=== PATIENT | male | born 1980 | race African-American/Black ===

== ENCOUNTER 2020-06-23 20:43 | Emergency (ER) | payer MEDICAID ==
[~2020-06-23] VITALS: Ht 182.9 cm; Wt 117.9 kg
--- NOTE | 2020-06-23 21:32 | NUR ---
Patient discharged to home in stable condition. Written and verbal after care instructions given. Patient verbalizes understanding of instructions. Stressed follow up or return to ER for worsening s/s. Patient ambulated with stable gait.
[2020-06-23 21:33] VITALS: BP 157/88
== END 2020-06-23 21:33 | disposition home or self-care (01) ==
LOC: ER 20:46
DX: K08.89 Other specified disorders of teeth and supporting structures (principal)
CPT/HCPCS: A4663

== ENCOUNTER 2021-01-17 10:56 | Emergency (ER) | payer MEDICAID ==
[~2021-01-17] VITALS: Ht 182.9 cm; Wt 117.0 kg
[2021-01-17] MEDS ORDERED: HYDROCHLOROTHIAZIDE 25 MG TABLET PO ONE (11:30)
[2021-01-17] MEDS ORDERED: ATENOLOL 50 MG TABLET PO ONE (11:30)
--- NOTE | 2021-01-17 11:30 | NUR ---
at bedside for assessment
[2021-01-17] MEDS ORDERED: ATEN100T PO (11:35)
[2021-01-17] MEDS ORDERED: HYDR25TA4 PO (11:35)
[2021-01-17] MEDS ORDERED: LOVA20TA2 PO (11:35)
[2021-01-17] MEDS ORDERED: IBUP-1957 PO (11:35)
[2021-01-17] MEDS ORDERED: ATENOLOL 50 MG TABLET ONE (11:39)
[2021-01-17] MEDS ORDERED: HYDROCHLOROTHIAZIDE 25 MG TABLET ONE (11:39)
[2021-01-17 11:41] VITALS: BP 162/101
--- NOTE | 2021-01-17 11:41 | NUR ---
Patient discharged to home in stable condition. Took all belongings, no signs of acute distress note. Written and verbal after care instructions given. Patient verbalizes understanding of instructions. Stressed follow up or return to ER for worsening s/s.
== END 2021-01-17 11:42 | disposition home or self-care (01) ==
LOC: ER 10:56
DX: I10 Essential (primary) hypertension (principal); E78.00 Pure hypercholesterolemia, unspecified; Z76.0 Encounter for issue of repeat prescription
CPT/HCPCS: A4663

== ENCOUNTER 2021-02-19 10:51 | Emergency (ER) | payer MEDICAID ==
[~2021-02-19] VITALS: Ht 182.9 cm; Wt 117.0 kg
[~2021-02-19 10:51] MED LIST: ATEN100T PO; HYDR25TA4 PO; IBUP-1957 PO; LOVA20TA2 PO
[2021-02-19] MEDS ORDERED: LOVA20TA2 PO (11:32)
[2021-02-19] MEDS ORDERED: ATEN100T PO (11:32)
[2021-02-19] MEDS ORDERED: HYDR25TA4 PO (11:32)
--- NOTE | 2021-02-19 11:45 | NUR ---
Patient discharged to home in stable condition. Written and verbal after care instructions given. Patient verbalizes understanding of instructions. Stressed follow up or return to ER for worsening s/s.
== END 2021-02-19 11:45 | disposition home or self-care (01) ==
LOC: ER 10:51
DX: I10 Essential (primary) hypertension (principal); E78.5 Hyperlipidemia, unspecified; Z76.0 Encounter for issue of repeat prescription
CPT/HCPCS: A4663

== ENCOUNTER 2021-03-21 09:40 | Emergency (ER) | payer MEDICAID ==
[~2021-03-21] VITALS: Ht 182.9 cm; Wt 117.0 kg
[2021-03-21] MEDS ORDERED: AMOX-430 PO (10:00)
[2021-03-21] MEDS ORDERED: IBUP-1957 PO (10:01)
--- NOTE | 2021-03-21 10:23 | NUR ---
Gave pt RX and d/c instructions, pt verbalized understanding.
== END 2021-03-21 10:10 | disposition home or self-care (01) ==
LOC: ER 09:40
DX: S02.5XXA Fracture of tooth (traumatic), initial encounter for closed fracture (principal); X58.XXXA Exposure to other specified factors, initial encounter; Y92.89 Other specified places as the place of occurrence of the external cause; E78.00 Pure hypercholesterolemia, unspecified; F17.210 Nicotine dependence, cigarettes, uncomplicated; Z79.899 Other long term (current) drug therapy
CPT/HCPCS: A4663

== ENCOUNTER 2021-07-02 12:51 | Emergency (ER) | payer MEDICAID ==
[~2021-07-02] VITALS: Ht 182.9 cm; Wt 116.1 kg
[~2021-07-02 12:51] MED LIST changes: +AMOX-430 PO
[2021-07-02] MEDS ORDERED: PENI500T PO (13:24)
[2021-07-02 13:46] VITALS: BP 149/86
== END 2021-07-02 13:45 | disposition home or self-care (01) ==
LOC: ER 12:53
DX: S02.5XXA Fracture of tooth (traumatic), initial encounter for closed fracture (principal); X58.XXXA Exposure to other specified factors, initial encounter; Y92.89 Other specified places as the place of occurrence of the external cause; E78.00 Pure hypercholesterolemia, unspecified; R03.0 Elevated blood-pressure reading, without diagnosis of hypertension
CPT/HCPCS: A4663

== ENCOUNTER 2021-10-08 11:43 | Emergency (ER) | payer MEDICAID ==
[~2021-10-08] VITALS: Ht 182.9 cm; Wt 116.6 kg
[~2021-10-08 11:43] MED LIST changes: +PENI500T PO
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
--- NOTE | 2021-10-08 12:05 | NUR ---
MD at bedside, medical screening exam in process.
--- NOTE | 2021-10-08 12:24 | NUR ---
No ortho shoe available, Dr Hooks notified.
[2021-10-08] MEDS ORDERED: NEOMY/BACITRA/POLYMYXIN B OINT UD PACKET TP ONE ×2 (12:42→13:00)
[2021-10-08 13:07] VITALS: BP 140/70
[2021-10-09] MEDS ORDERED: CEPH500C2 PO (13:14)
== END 2021-10-08 13:08 | disposition home or self-care (01) ==
LOC: ER 11:44
DX: S91.311D Laceration without foreign body, right foot, subsequent encounter (principal); S32.009D Unspecified fracture of unspecified lumbar vertebra, subsequent encounter for fracture with routine healing; T81.31XA Disruption of external operation (surgical) wound, not elsewhere classified, initial encounter; V69 Occupant of heavy transport vehicle injured in other and unspecified transport accidents; E78.00 Pure hypercholesterolemia, unspecified; Z79.899 Other long term (current) drug therapy
CPT/HCPCS: A4663

== ENCOUNTER 2021-10-09 12:25 | Emergency (ER) | payer MEDICAID ==
[~2021-10-09] VITALS: Ht 182.9 cm; Wt 116.6 kg
[2021-10-09] MEDS ORDERED: CEPH500C2 PO (13:14)
[2021-10-09] MEDS ORDERED: MUPIROCIN 2% OINT 22 GM TUBE TP ONE (13:15)
[2021-10-09] MEDS ORDERED: CEphaleXIN 250 MG CAPSULE PO ONE (13:15)
[2021-10-09] MEDS ORDERED: CEphaleXIN 250 MG CAPSULE ONE ×2 (13:21→13:22)
[2021-10-09] MEDS ORDERED: MUPIROCIN 2% OINT 22 GM TUBE ONE (13:21)
[2021-10-09] MEDS ORDERED: KETOROLAC TROMETHAMINE 30 MG INJ IM ONE (13:45)
[2021-10-09] MEDS ORDERED: KETOROLAC TROMETHAMINE 30 MG INJ ONE (13:56)
[2021-10-09 14:13] VITALS: BP 140/89
== END 2021-10-09 14:15 | disposition home or self-care (01) ==
LOC: ER 12:59
DX: T81.31XD Disruption of external operation (surgical) wound, not elsewhere classified, subsequent encounter (principal); R03.0 Elevated blood-pressure reading, without diagnosis of hypertension; E78.00 Pure hypercholesterolemia, unspecified
CPT/HCPCS: 96372; 99283; J1885; A4663

== ENCOUNTER 2021-10-16 23:20 | Emergency (ER) | payer MEDICAID ==
[~2021-10-16] VITALS: Ht 182.9 cm; Wt 116.6 kg
[~2021-10-16 23:20] MED LIST changes: +CEPH500C2 PO
--- NOTE | 2021-10-16 23:40 | NUR ---
Dr. Harp at bedside for MSE.
[2021-10-16] MEDS ORDERED: MUPIROCIN 2% OINT 22 GM TUBE ONE (23:57)
[2021-10-16] MEDS ORDERED: IBUPROFEN 800 MG TABLET ONE (23:58)
[2021-10-17] MEDS ORDERED: MUPIROCIN 2% OINT 22 GM TUBE TP ONE
[2021-10-17] MEDS ORDERED: IBUPROFEN 800 MG TABLET PO ONE
--- NOTE | 2021-10-17 00:14 | NUR ---
Patient discharged to home in stable condition. Written and verbal after care instructions given. Patient verbalizes understanding of instructions. Stressed follow up or return to ER for worsening s/s. Patient out of ER with steady gait, no acute signs of distress, VSS, all belongings taken.
[2021-10-17 00:17] VITALS: BP 145/90
[2021-10-17] MEDS ORDERED: CEPH500C2 PO ×2 (00:42)
[2021-10-17] MEDS ORDERED: SULF1TAB48 PO ×2 (00:42)
[2021-10-17] MEDS ORDERED: GABA600T PO ×2 (00:42)
[2021-10-17] MEDS ORDERED: IBUP800T54 PO ×2 (00:42)
[2021-10-17] MEDS ORDERED: HYDR-3980 PO ×2 (00:42)
== END 2021-10-17 00:17 | disposition home or self-care (01) ==
LOC: ER 23:23
DX: T81.31XD Disruption of external operation (surgical) wound, not elsewhere classified, subsequent encounter (principal); S91.311D Laceration without foreign body, right foot, subsequent encounter; L08.9 Local infection of the skin and subcutaneous tissue, unspecified; V49.9XXD Car occupant (driver) (passenger) injured in unspecified traffic accident, subsequent encounter; E78.00 Pure hypercholesterolemia, unspecified; F17.290 Nicotine dependence, other tobacco product, uncomplicated

== ENCOUNTER 2021-10-24 13:56 | Emergency (ER) | payer MEDICAID ==
[~2021-10-24] VITALS: Ht 182.9 cm; Wt 116.6 kg
[~2021-10-24 13:56] MED LIST changes: +GABA600T PO; +HYDR-3980 PO; +IBUP800T54 PO; +SULF1TAB48 PO
--- NOTE | 2021-10-24 14:02 | NUR ---
pt. been triage and been examine by .
--- NOTE | 2021-10-24 14:34 | NUR ---
at bedside to examine pt,.
[2021-10-24] MEDS ORDERED: HYDROCODONE/APAP 5-325MG TABLET PO ONE ×2 (14:45→15:00)
[2021-10-24] MEDS ORDERED: NEOMY/BACITRA/POLYMYXIN B OINT UD PACKET TP ONE ×2 (14:45→14:47)
[2021-10-24] MEDS ORDERED: HYDROCODONE/APAP 5-325MG TABLET ONE ×2 (14:49→15:09)
[2021-10-24] MEDS ORDERED: HYDR-4209 PO (15:12)
[2021-10-24] MEDS ORDERED: IBUP-1955 PO (15:12)
--- NOTE | 2021-10-24 15:14 | NUR ---
wound dressing done as ordered pt. provided and instructed by MD on the use of crutches. Mecicated for pain with norco X2 as requested. Patient left room AAOx4,. CDC instructions provided.
--- NOTE | 2021-10-24 15:21 | NUR ---
Pt. walk out of the unit with crutches in his hands intructed one more time to use them .
== END 2021-10-24 15:35 | disposition home or self-care (01) ==
LOC: ER 13:56
DX: T81.31XD Disruption of external operation (surgical) wound, not elsewhere classified, subsequent encounter (principal); G89.29 Other chronic pain; M54.50 Low back pain, unspecified; M79.671 Pain in right foot; F17.290 Nicotine dependence, other tobacco product, uncomplicated; Z76.0 Encounter for issue of repeat prescription; I10 Essential (primary) hypertension; E78.5 Hyperlipidemia, unspecified; S32.008D Other fracture of unspecified lumbar vertebra, subsequent encounter for fracture with routine healing; V49.9XXD Car occupant (driver) (passenger) injured in unspecified traffic accident, subsequent encounter
CPT/HCPCS: A4663

== ENCOUNTER 2021-12-26 04:24 | Emergency (ER) | payer SELFPAY ==
[~2021-12-26 04:24] MED LIST changes: -AMOX-430 PO; -HYDR-3980 PO; +HYDR-4209 PO; +IBUP-1955 PO; -IBUP-1957 PO; -IBUP800T54 PO; -PENI500T PO
--- NOTE | 2021-12-26 04:35 | NUR ---
Patient went up to registration window and told blood bank booking clerk "I don't want to be seen anymore." PATIENT LEFT WITHOUT BEING SEEN BY ERMD OR TRIAGED.
== END 2021-12-26 04:46 | disposition left against medical advice (07) ==
LOC: ER 04:29
DX: Z53.21 Procedure and treatment not carried out due to patient leaving prior to being seen by health care provider (principal)

== ENCOUNTER 2022-03-03 21:44 | Emergency (ER) | payer MEDICAID ==
[~2022-03-03] VITALS: Ht 182.9 cm; Wt 104.3 kg
[2022-03-03] MEDS ORDERED: PENI500T PO (23:40)
[2022-03-03] MEDS ORDERED: ATEN100T PO (23:40)
[2022-03-03] MEDS ORDERED: HYDR25TA4 PO (23:40)
[2022-03-03] MEDS ORDERED: IBUP-1955 PO (23:40)
[2022-03-03] MEDS ORDERED: LOVA20TA2 PO (23:40)
[2022-03-03] MEDS ORDERED: IBUPROFEN 600 MG TABLET PO ONE (23:45)
[2022-03-03] MEDS ORDERED: PENICILLIN V POTASSIUM 500 MG TABLET PO ONE (23:45)
[2022-03-03] MEDS ORDERED: PENICILLIN V POTASSIUM 500 MG TABLET ONE (23:47)
[2022-03-03] MEDS ORDERED: IBUPROFEN 600 MG TABLET ONE (23:47)
--- NOTE | 2022-03-04 00:03 | NUR ---
Patient discharged to home in stable condition. Written and verbal after care instructions given. Patient verbalizes understanding of instructions. Stressed follow up or return to ER for worsening s/s. Patient is a/ox4, NAD noted. Patient is able to walk with steady gait
[2022-03-04 00:04] VITALS: BP 137/82
== END 2022-03-04 00:05 | disposition home or self-care (01) ==
LOC: ER 21:44
DX: K08.89 Other specified disorders of teeth and supporting structures (principal); S02.5XXA Fracture of tooth (traumatic), initial encounter for closed fracture; X58.XXXA Exposure to other specified factors, initial encounter; Y92.89 Other specified places as the place of occurrence of the external cause; Z76.0 Encounter for issue of repeat prescription
CPT/HCPCS: A4663

== ENCOUNTER 2022-06-11 13:20 | Emergency (ER) | payer MEDICAID ==
[~2022-06-11] VITALS: Ht 182.9 cm; Wt 108.0 kg
[~2022-06-11 13:20] MED LIST changes: +PENI500T PO
[2022-06-11] MEDS ORDERED: IBUP-1955 PO (14:30)
[2022-06-11] MEDS ORDERED: HYDR25TA4 PO (14:30)
[2022-06-11] MEDS ORDERED: LOVA20TA2 PO (14:30)
[2022-06-11] MEDS ORDERED: IBUP-1953 PO (14:30)
[2022-06-11] MEDS ORDERED: ATEN100T PO (14:30)
[2022-06-11 14:34] VITALS: BP 136/71
--- NOTE | 2022-06-11 14:36 | NUR ---
Patient presented at the ER requesting medication refill. Patient see by MD. Med refill completed. Departed ambulatory.
== END 2022-06-11 14:37 | disposition home or self-care (01) ==
LOC: ER 13:22
DX: Z76.0 Encounter for issue of repeat prescription (principal)
CPT/HCPCS: A4663